=== PATIENT | male | born 1985 | race Caucasian/White ===

== ENCOUNTER 2020-03-25 05:59 | Emergency (ER) | payer BC ==
[~2020-03-25] VITALS: Ht 185.4 cm; Wt 106.6 kg
[2020-03-25] MEDS ORDERED: LEXAPRO 10 MG T10 M2 PO (06:09)
[2020-03-25] MEDS ORDERED: CLONAZEPAM 0.50.5 M1 PO (06:10)
[2020-03-25 06:19] LABS: ABSOLUTE BASOPHILS 0.1 thou/uL (0.0-0.2); ABSOLUTE EOSINOPHILS 0.1 thou/uL (0.0-0.7); ABSOLUTE LYMPHOCYTES 2.5 thou/uL (0.8-5.3); ABSOLUTE MONOCYTES 0.7 thou/uL (0.0-1.2); ABSOLUTE NEUTROPHILS 9.2 thou/uL (1.6-8.1); BASOPHILS 0.8 %; EOSINOPHILS 0.5 %; HEMATOCRIT 50.5 % (42.0-52.0); HEMOGLOBIN 17.7 gm/dL (14.0-18.0); LYMPHOCYTES 19.6 %; MCH 31.1 pg (26.0-34.0); MCV 88.8 fL (80.0-100.0); MONOCYTES 5.9 %; MPV 9.1 fl. (7.2-11.1); NUCLEATED RBCS 0 /100WBC; PLATELET COUNT* 206 thou/uL (150-400); POLYS 73.2 %; RBC 5.68 mil/uL (4.50-6.00); WBC 12.6 thou/uL (4.0-11.0)
[2020-03-25 06:28] LABS: CREATININE 1.1 mg/dL (0.6-1.3); POTASSIUM 3.4 mmol/L (3.5-5.1)
[2020-03-25 06:32] LABS: ALBUMIN 4.4 g/dL (3.4-5.0); TOTAL BILIRUBIN 0.8 mg/dL (<0.1-1.0); TOTAL PROTEIN 7.9 g/dL (6.4-8.2)
[2020-03-25] MEDS ORDERED: ZOFRAN ODT4 MG DISSOLVE ×2 (08:27→08:58)
[2020-03-25] MEDS ORDERED: PHENERGAN 25 MG25 M1 PO ×2 (08:27→08:58)
[2020-03-25 08:51] VITALS: BP 172/83
== END 2020-03-25 08:52 | disposition home or self-care (01) ==
LOC: M.ERS 05:59
PROVIDERS: Emergency Medicine
DX: R11.2 Nausea with vomiting, unspecified (principal); Z20.828 Contact with and (suspected) exposure to other viral communicable diseases

== ENCOUNTER 2020-03-31 02:54 | Emergency (ER) | payer BC ==
[~2020-03-31] VITALS: Ht 185.4 cm; Wt 106.6 kg
[~2020-03-31 02:54] MED LIST: CLONAZEPAM 0.50.5 M1 PO; LEXAPRO 10 MG T10 M2 PO; PHENERGAN 25 MG25 M1 PO; ZOFRAN ODT4 MG DISSOLVE
[2020-03-31] MEDS ORDERED: XANAX1 MG PO (03:03)
[2020-03-31 03:42] LABS: ABSOLUTE BASOPHILS 0.1 thou/uL (0.0-0.2); ABSOLUTE EOSINOPHILS 0.1 thou/uL (0.0-0.7); ABSOLUTE LYMPHOCYTES 2.3 thou/uL (0.8-5.3); ABSOLUTE MONOCYTES 0.7 thou/uL (0.0-1.2); ABSOLUTE NEUTROPHILS 6.4 thou/uL (1.6-8.1); BASOPHILS 0.7 %; EOSINOPHILS 1.2 %; HEMATOCRIT 49.4 % (42.0-52.0); HEMOGLOBIN 17.4 gm/dL (14.0-18.0); LYMPHOCYTES 23.8 %; MCH 31.5 pg (26.0-34.0); MCHC 35.3 g/dL (28.0-37.0); MCV 89.4 fL (80.0-100.0); MONOCYTES 7.4 %; MPV 8.9 fl. (7.2-11.1); NUCLEATED RBCS 0 /100WBC; PLATELET COUNT* 184 thou/uL (150-400); POLYS 66.9 %; RBC 5.53 mil/uL (4.50-6.00); RDW-CV 12.6 % (10.5-14.5); WBC 9.6 thou/uL (4.0-11.0)
[2020-03-31 03:53] LABS: CALCIUM 9.1 mg/dL (8.5-10.1); CREATININE 1.1 mg/dL (0.6-1.3); POTASSIUM 3.7 mmol/L (3.5-5.1)
[2020-03-31 03:57] LABS: ALBUMIN 4.5 g/dL (3.4-5.0); TOTAL BILIRUBIN 0.9 mg/dL (<0.1-1.0); TOTAL PROTEIN 7.9 g/dL (6.4-8.2)
[2020-03-31] MEDS ORDERED: PHENERGAN 25 MG25 M1 PO (05:10)
[2020-03-31] MEDS ORDERED: NORCO 5-325 TA1 EAC2 PO (05:10)
[2020-03-31 05:18] VITALS: BP 138/88
== END 2020-03-31 05:18 | disposition home or self-care (01) ==
LOC: M.ERS 02:54
PROVIDERS: Emergency Medicine Emergency Medical Services
DX: F12.10 Cannabis abuse, uncomplicated (principal); R11.2 Nausea with vomiting, unspecified